=== PATIENT | female | born 1960 | race Caucasian/White ===

== ENCOUNTER 2018-01-30 03:20 | Inpatient (IN) | payer OTHER ==
[2018-01-30] MEDS: SOD CHLORIDE 0.9% 1,000 ML IV ×3 (03:26→11:51)
[2018-01-30] MEDS: MIDAZOLAM (DRIP) 50 mg/50 mL 50 ML IV ×2 (03:26→15:22)
[2018-01-30] MEDS: ROCURONIUM 50 MG INJ IV (03:29)
[2018-01-30] MEDS: FENTAnyl (DRIP) 1000 mcg/100mL 100 ML IV ×2 (03:30→15:24)
[2018-01-30 03:47] LABS: ADD MAN DIFF? NO
[2018-01-30 03:54] LABS: ALANINE AMINOTRANSFERASE 37 IU/L (13-69); ALBUMIN 3.6 g/dl (3.3-4.9); ALBUMIN/GLOBULIN RATIO 0.83; ALKALINE PHOSPHATASE 154 IU/L (42-121); ANION GAP 21 (8-16); ASPARTATE AMINO TRANSFERASE 91 IU/L (15-46); BILIRUBIN,INDIRECT 1.2 mg/dl (0-1.1); BILIRUBIN,TOTAL 1.2 mg/dl (0.2-1.3); BLOOD UREA NITROGEN 17 mg/dl (7-20); CALCIUM 8.6 mg/dl (8.4-10.2); CARBON DIOXIDE 24 mmol/L (21-31); CHLORIDE 105 mmol/L (97-110); CREATININE 1.18 mg/dl (0.44-1.00); GLUCOSE 99 mg/dl (70-220); LIPASE 190 U/L (23-300); POTASSIUM 3.6 mmol/L (3.5-5.1); SODIUM 146 mmol/L (135-144); TOTAL PROTEIN 7.9 g/dl (6.1-8.1)
[2018-01-30 04:02] LABS: BASOPHILS % 0.4 % (0.0-2.0); EOSINOPHILS # 0.1 10^3/ul (0.0-0.5); EOSINOPHILS % 1.4 % (0.0-7.0); HEMATOCRIT 46.5 % (37.0-47.0); HEMOGLOBIN 14.6 g/dl (12.0-16.0); LYMPHOCYTES # 2.5 10^3/ul (0.8-2.9); LYMPHOCYTES % 35.4 % (15.0-51.0); MEAN CORPUSCULAR HEMOGLOBIN 32.8 pg (29.0-33.0); MEAN CORPUSCULAR HGB CONC 31.4 g/dl (32.0-37.0); MEAN CORPUSCULAR VOLUME 104.5 fl (82.0-101.0); MEAN PLATELET VOLUME 12.3 fl (7.4-10.4); MONOCYTE # 0.4 10^3/ul (0.3-0.9); MONOCYTES % 5.1 % (0.0-11.0); NEUTROPHILS % 57.1 % (39.0-77.0); PLATELET COUNT 121 10^3/UL (140-415); RED BLOOD COUNT 4.45 10^6/ul (4.20-5.40); RED CELL DISTRIBUTION WIDTH 15.5 % (11.5-14.5)
[2018-01-30 04:06] LABS: B-TYPE NATRIURETIC PEPTIDE 318 PG/ML (0-125); TROPONIN-I 0.027 ng/ml (0.000-0.120)
[2018-01-30 04:09] LABS: INR 1.14; PROTIME 14.8 Sec (11.9-14.9); PT RATIO 1.2
[2018-01-30 04:10] LABS: PARTIAL THROMBOPLASTIN TIME 34.8 Sec (25.0-35.0)
[2018-01-30 04:51] LABS: AADO2 Arterial 600.9 mmHg (7.0-24.0); Allen Test ACCEPTAB; Arterial Base Excess -6.4 mmol/L (-3.0-3); Arterial Blood Gas Oxygen Sat 81.5 mmHG (95.0-98.0); Arterial COHb 0.8 % (0.0-3.0); Arterial Fraction of Oxyhgb 80.6 % (93.0-99.0); Arterial HCO3 22.2 mmol/L (22.0-26.0); Arterial MetHb 0.3 % (0.0-1.5); Arterial Total Hemglobin 16.4 g/dl (12.0-18.0); Arterial pCO2 55.7 mmhg (35-45); MODE VENT - AC; Site Left Radial
[2018-01-30] MEDS: CEFEPIME 2GM/50 ML (PMX) 50 ML IVPB (04:52)
[2018-01-30] MEDS: VANCOMYCIN 1 GM (PMX) 250 ML IVPB (04:53)
[2018-01-30] MEDS: ACETAMINOPHEN 650 MG SUPP PR (04:53)
[2018-01-30] MEDS: SODIUM CHLORIDE 0.9% 1L BAG IV* (05:10)
[2018-01-30] MEDS: ASPIRIN 300 MG SUPP PR (05:18)
[2018-01-30 05:24] LABS: LACTIC ACID 13.1 mmol/L (0.5-2.0)
[2018-01-30] MEDS ORDERED: DOCUSATE SODIUM 100 MG CAP PO (05:30)
[2018-01-30] MEDS ORDERED: morphine 2 MG INJ IV (05:30)
[2018-01-30] MEDS ORDERED: ONDANSETRON 4 MG INJ IV (05:30)
[2018-01-30] MEDS ORDERED: NITROGLYCERIN 50 MG/D5W (PMX) 250 ML IV (05:30)
[2018-01-30] MEDS ORDERED: NACL 0.9% 3 ML SYG IV (05:30)
[2018-01-30] MEDS ORDERED: HEPARIN 5,000 UNIT/0.5 ML VIAL SC (06:00)
[2018-01-30] MEDS ORDERED: ETOMIDATE 20 MG INJ (07:00)
[2018-01-30] MEDS ORDERED: ROCURONIUM 50 MG INJ (07:00)
[2018-01-30 07:10] LABS: LACTIC ACID 5.6 mmol/L (0.5-2.0)
[2018-01-30] MEDS ORDERED: DEXTROSE 50% 50 ML SYRINGE (07:11)
[2018-01-30 07:22] LABS: ADD UMIC YES; UR AMORPHOUS CRYSTAL FEW /HPF (NONE SEEN); UR ASCORBIC ACID 20 mg/dL (NEGATIVE); UR BACTERIA FEW /HPF (NONE SEEN); UR BILIRUBIN (Dip) NEGATIVE (NEGATIVE); UR BLOOD (Dip) 2+ mg/dL (NEGATIVE); UR CLARITY SLIGHTLY CLOUDY (CLEAR); UR COLOR YELLOW (YELLOW); UR GLUCOSE (Dip) NEGATIVE (NEGATIVE); UR KETONES (Dip) NEGATIVE (NEGATIVE); UR LEUKOCYTE ESTERASE (Dip) NEGATIVE Leu/ul (NEGATIVE); UR NITRITE (Dip) NEGATIVE (NEGATIVE); UR RBC 94 /HPF (0-5); UR SPECIFIC GRAVITY (Dip) 1.015 (1.003-1.030); UR TOTAL PROTEIN (Dip) 3+ mg/dl (NEGATIVE); UR UROBILINOGEN (Dip) 2+ mg/dL (NEGATIVE); UR WBC 12 /HPF (0-5)
[2018-01-30] MEDS ORDERED: VANCOMYCIN IV PER PHARMACY XX (08:30)
[2018-01-30] MEDS ORDERED: LACTATED RINGER'S 1,000 ML IV (08:30)
[2018-01-30] MEDS: IPRATROPIUM (NEB) 0.5 MG/2.5 ML AMP NEB ×4 (09:00→21:35)
[2018-01-30] MEDS ORDERED: DOPamine-D5W 1.6 MG/ML 250 ML (09:21)
[2018-01-30] MEDS: DOPamine-D5W 1.6 MG/ML 250 ML IV (09:26)
[2018-01-30 09:37] LABS: LACTIC ACID 5.1 mmol/L (0.5-2.0)
[2018-01-30] MEDS ORDERED: GLUCOSE GEL 15 GRAM TUBE PO ×2 (10:00)
[2018-01-30] MEDS ORDERED: GLUCAGON 1 MG INJ IM (10:00)
[2018-01-30] MEDS ORDERED: GLUCOSE GEL 15 GRAM TUBE BUCCAL (10:00)
[2018-01-30] MEDS: LIDOCAINE 1% (MPF) 5 ML VIAL SC (10:35)
[2018-01-30 11:05] LABS: D-DIMER 9401.21 ng/ml (<460)
[2018-01-30 11:09] LABS: CK INDEX 0.5; CREATINE KINASE 1907 IU/L (23-200)
[2018-01-30] MEDS: NORepinephrine 8MG/250 ML (PMX 250 ML IV (11:21)
[2018-01-30] MEDS: METHYLPREDNISOLONE 40 MG INJ IV ×3 (11:50→18:16)
[2018-01-30] MEDS: VANCOMYCIN 750 MG in SOD CHLORIDE 0.9% 150 ML IVPB ×2 (11:50→22:41)
[2018-01-30] MEDS: FAMOTIDINE 20 MG INJ IV ×2 (11:50→20:39)
[2018-01-30] MEDS: DEXTROSE 50% 50 ML SYRINGE IV (12:47)
[2018-01-30] MEDS: DEXTROSE 5%-0.45% NACL 1,000 ML IV ×2 (13:11→20:39)
[2018-01-30 14:53] LABS: AMPHETAMINE/METHAMPHETAMINE Negative (NEGATIVE); BENZODIAZEPINES Negative (NEGATIVE); CANNABINOIDS Negative (NEGATIVE); COCAINE Negative (NEGATIVE); OPIATES Negative (NEGATIVE)
[2018-01-30 15:55] LABS: BARBITURATES Negative (NEGATIVE)
[2018-01-30 16:00] LABS: LACTIC ACID 5.9 mmol/L (0.5-2.0)
[2018-01-30] MEDS ORDERED: CEFEPIME 2GM/50 ML (PMX) 50 ML IVPB (16:00)
[2018-01-30 16:30] LABS: CK INDEX 0.2
[2018-01-31] MEDS: METHYLPREDNISOLONE 40 MG INJ IV ×4 (00:18→17:33)
[2018-01-31] MEDS: ACCU-CHEK XX ×6 (01:08→21:28)
[2018-01-31] MEDS: IPRATROPIUM (NEB) 0.5 MG/2.5 ML AMP NEB ×2 (01:25→05:25)
[2018-01-31] MEDS: DEXTROSE 5%-0.45% NACL 1,000 ML IV ×3 (05:00→19:55)
[2018-01-31 05:02] LABS: WHITE BLOOD COUNT 7.7 10^3/ul (4.8-10.8)
[2018-01-31 05:02] LABS: ABNORMAL IP MESSAGE 1; HEMATOCRIT 37.3 % (37.0-47.0); HEMOGLOBIN 11.9 g/dl (12.0-16.0); MEAN CORPUSCULAR HEMOGLOBIN 31.4 pg (29.0-33.0); MEAN CORPUSCULAR HGB CONC 31.9 g/dl (32.0-37.0); MEAN CORPUSCULAR VOLUME 98.4 fl (82.0-101.0); MEAN PLATELET VOLUME 12.7 fl (7.4-10.4); PLATELET COUNT 89 10^3/UL (140-415); RED BLOOD COUNT 3.79 10^6/ul (4.20-5.40); RED CELL DISTRIBUTION WIDTH 15.6 % (11.5-14.5)
[2018-01-31 05:14] LABS: ADD MAN DIFF? YES; POSITIVE DIFF @See below
[2018-01-31 05:16] LABS: HEMOGLOBIN A1C 5.7 % (0-5.9)
[2018-01-31] MEDS: HEPARIN 5,000 UNIT/0.5 ML VIAL SC ×3 (05:53→22:20)
[2018-01-31] MEDS ORDERED: IPRATROPIUM (HFA) 12.9 GM INHALER INH ×2 (06:00→09:00)
[2018-01-31 06:13] LABS: LACTIC ACID 3.1 mmol/L (0.5-2.0)
[2018-01-31] MEDS: CEFEPIME 2GM/50 ML IVPB (06:16)
[2018-01-31] MEDS ORDERED: MAGNESIUM SULFATE 1 GM/100 ML D5W IVPB (07:00)
[2018-01-31] MEDS ORDERED: AMIODARONE 150 MG INJ (07:00)
[2018-01-31 07:10] LABS: ALANINE AMINOTRANSFERASE 68 IU/L (13-69); ALBUMIN/GLOBULIN RATIO 0.64; ALKALINE PHOSPHATASE 82 IU/L (42-121); ANION GAP 8 (8-16); ASPARTATE AMINO TRANSFERASE 350 IU/L (15-46); BILIRUBIN,INDIRECT 2.4 mg/dl (0-1.1); BILIRUBIN,TOTAL 3.4 mg/dl (0.2-1.3); BLOOD UREA NITROGEN 30 mg/dl (7-20); CALCIUM 7.4 mg/dl (8.4-10.2); CARBON DIOXIDE 28 mmol/L (21-31); CHLORIDE 108 mmol/L (97-110); CHOL/HDL RATIO 2.7 RATIO; CHOLESTEROL 101 mg/dl (100-200); CREATININE 1.03 mg/dl (0.44-1.00); GLUCOSE 111 mg/dl (70-220); HDL CHOLESTEROL 37 mg/dl (35-98); LDL CHOLESTEROL,CALCULATED 49 mg/dl; MAGNESIUM 1.9 mg/dl (1.7-2.5); POTASSIUM 3.8 mmol/L (3.5-5.1); SODIUM 140 mmol/L (135-144); TOTAL PROTEIN 5.1 g/dl (6.1-8.1); TRIGLYCERIDES 74 mg/dl (0-149)
[2018-01-31 07:16] LABS: AADO2 Arterial 394.1 mmHg (7.0-24.0); Allen Test ACCEPTAB; Arterial Base Excess 1.8 mmol/L (-3.0-3); Arterial Blood Gas Oxygen Sat 93.9 mmHG (95.0-98.0); Arterial COHb 0.6 % (0.0-3.0); Arterial Fraction of Oxyhgb 93.1 % (93.0-99.0); Arterial HCO3 25.4 mmol/L (22.0-26.0); Arterial MetHb 0.2 % (0.0-1.5); Arterial Total Hemglobin 13.2 g/dl (12.0-18.0); Arterial pCO2 36.5 mmhg (35-45); MODE VENT - AC; Site Right Radial
[2018-01-31 07:40] LABS: THYROID STIMULATING HORMONE 0.474 MIU/L (0.465-4.680)
[2018-01-31] MEDS: ASPIRIN 300 MG SUPP PR (09:12)
[2018-01-31] MEDS: FAMOTIDINE 20 MG INJ IV ×2 (09:12→21:28)
[2018-01-31] MEDS: IPRATROPIUM (NEB) 0.5 MG/2.5 ML AMP HHN ×4 (09:49→21:17)
[2018-01-31] MEDS: VANCOMYCIN 750 MG in SOD CHLORIDE 0.9% 150 ML IVPB ×2 (11:17→23:15)
[2018-01-31 12:05] LABS: ANISOCYTOSIS 3+ (0-0); BAND NEUTROPHILS #M 3.8 10^3/ul (0.0-0.6); BAND NEUTROPHILS % (M) 50 % (0-4); BASOPHILS % (M) 1 % (0-2); LYMPHOCYTES #M 0.4 10^3/ul (0.8-2.9); LYMPHOCYTES % (M) 6 % (15-51); METAMYELOCYTES %M 1 % (0-0); MONOCYTES % (M) 1 % (0-11); MYELOCYTES % (M) 1 % (0-0); PLATELET ESTIMATE DECREASED; POIKILOCYTOSIS 3+ (0-0); POLYCHROMASIA 3+ (0-0); PROMYELOCYTES % (M) 1 % (0-0); REACTIVE LYMPHOCYTES% (M) 1 % (0-0); SEG NEUT #M 3.4 10^3/ul (1.6-7.5); SEGMENTED NEUTROPHILS (M) % 41 % (39-77); SMUDGE%M 4 % (0-0)
[2018-01-31] MEDS: MIDAZOLAM (DRIP) 50 mg/50 mL 50 ML IV (23:15)
[2018-01-31 23:42] LABS: VANCOMYCIN,TROUGH 11.3 ug/ml (10.0-20.0)
[2018-02-01] MEDS: METHYLPREDNISOLONE 40 MG INJ IV ×4 (00:36→18:14)
[2018-02-01] MEDS: ACCU-CHEK XX ×6 (00:43→20:46)
[2018-02-01] MEDS: IPRATROPIUM (NEB) 0.5 MG/2.5 ML AMP HHN ×6 (01:58→21:58)
[2018-02-01] MEDS: FENTAnyl (DRIP) 1000 mcg/100mL 100 ML IV (03:00)
[2018-02-01] MEDS: CEFEPIME 2GM/50 ML IVPB (05:09)
[2018-02-01 05:23] LABS: ABNORMAL IP MESSAGE 1; HEMATOCRIT 36.1 % (37.0-47.0); HEMOGLOBIN 11.6 g/dl (12.0-16.0); MEAN CORPUSCULAR HGB CONC 32.1 g/dl (32.0-37.0); MEAN CORPUSCULAR VOLUME 99.4 fl (82.0-101.0); MEAN PLATELET VOLUME 12.9 fl (7.4-10.4); PLATELET COUNT 86 10^3/UL (140-415); RED BLOOD COUNT 3.63 10^6/ul (4.20-5.40); RED CELL DISTRIBUTION WIDTH 15.6 % (11.5-14.5)
[2018-02-01 05:23] LABS: WHITE BLOOD COUNT 7.9 10^3/ul (4.8-10.8)
[2018-02-01 05:27] LABS: POSITIVE DIFF @See below
[2018-02-01 05:28] LABS: ADD MAN DIFF? YES
[2018-02-01 05:53] LABS: MAGNESIUM 2.2 mg/dl (1.7-2.5)
[2018-02-01 05:58] LABS: B-TYPE NATRIURETIC PEPTIDE 980 PG/ML (0-125)
[2018-02-01] MEDS: DEXTROSE 5%-0.45% NACL 1,000 ML IV ×2 (06:20→18:14)
[2018-02-01] MEDS: HEPARIN 5,000 UNIT/0.5 ML VIAL SC ×3 (06:23→22:00)
[2018-02-01 06:38] LABS: ALANINE AMINOTRANSFERASE 81 IU/L (13-69); ALBUMIN 1.9 g/dl (3.3-4.9); ALBUMIN/GLOBULIN RATIO 0.59; ALKALINE PHOSPHATASE 81 IU/L (42-121); ANION GAP 9 (8-16); ASPARTATE AMINO TRANSFERASE 353 IU/L (15-46); BILIRUBIN,INDIRECT 2.1 mg/dl (0-1.1); BILIRUBIN,TOTAL 4.2 mg/dl (0.2-1.3); BLOOD UREA NITROGEN 32 mg/dl (7-20); CALCIUM 7.4 mg/dl (8.4-10.2); CARBON DIOXIDE 26 mmol/L (21-31); CHLORIDE 106 mmol/L (97-110); CREATININE 0.96 mg/dl (0.44-1.00); GLUCOSE 125 mg/dl (70-220); POTASSIUM 3.9 mmol/L (3.5-5.1); SODIUM 137 mmol/L (135-144); TOTAL PROTEIN 5.1 g/dl (6.1-8.1)
[2018-02-01 07:50] LABS: ANISOCYTOSIS 2+ (0-0); BAND NEUTROPHILS #M 1.6 10^3/ul (0.0-0.6); BAND NEUTROPHILS % (M) 21 % (0-4); BURR CELLS 1+ (0-0); GIANT THROMBO% (M) 1 % (0-0); LYMPHOCYTES #M 0.7 10^3/ul (0.8-2.9); LYMPHOCYTES % (M) 10 % (15-51); MONOCYTE #M 0.3 10^3/ul (0.3-0.9); MONOCYTES % (M) 5 % (0-11); PLATELET ESTIMATE DECREASED; POIKILOCYTOSIS 1+ (0-0); POLYCHROMASIA 3+ (0-0); SEG NEUT #M 5.2 10^3/ul (1.6-7.5); SEGMENTED NEUTROPHILS (M) % 64 % (39-77); SMUDGE%M 5 % (0-0)
[2018-02-01] MEDS ORDERED: PENDING SANTYL ORDER FOR WOUND CARE XX (08:00)
[2018-02-01 08:54] LABS: AADO2 Arterial 323.3 mmHg (7.0-24.0); Allen Test ACCEPTAB; Arterial Base Excess 0.2 mmol/L (-3.0-3); Arterial Blood Gas Oxygen Sat 91.8 mmHG (95.0-98.0); Arterial COHb 0.5 % (0.0-3.0); Arterial Fraction of Oxyhgb 91.2 % (93.0-99.0); Arterial HCO3 24.2 mmol/L (22.0-26.0); Arterial MetHb 0.2 % (0.0-1.5); Arterial Total Hemglobin 13.1 g/dl (12.0-18.0); Arterial pCO2 37.2 mmhg (35-45); MODE VENT - AC; Site Right Radial
[2018-02-01] MEDS: ASPIRIN 300 MG SUPP PR (09:00)
[2018-02-01] MEDS: FAMOTIDINE 20 MG INJ IV ×2 (09:51→20:42)
[2018-02-01] MEDS: VANCOMYCIN 750 MG in SOD CHLORIDE 0.9% 150 ML IVPB ×2 (11:18→23:27)
[2018-02-01] MEDS: METHADONE 10 MG TAB PO (11:29)
[2018-02-02] MEDS: DEXTROSE 5%-0.45% NACL 1,000 ML IV ×3 (00:01→21:27)
[2018-02-02] MEDS: METHYLPREDNISOLONE 40 MG INJ IV ×5 (00:13→23:42)
[2018-02-02] MEDS: ACCU-CHEK XX ×6 (01:32→21:00)
[2018-02-02] MEDS: IPRATROPIUM (NEB) 0.5 MG/2.5 ML AMP HHN ×6 (01:43→21:30)
[2018-02-02] MEDS: CEFEPIME 2GM/50 ML IVPB (05:02)
[2018-02-02 05:25] LABS: ADD MAN DIFF? NO
[2018-02-02 05:36] LABS: WHITE BLOOD COUNT 6.6 10^3/ul (4.8-10.8)
[2018-02-02 05:36] LABS: ABNORMAL IP MESSAGE 1; BASOPHILS % 0.2 % (0.0-2.0); HEMATOCRIT 34.4 % (37.0-47.0); HEMOGLOBIN 11.5 g/dl (12.0-16.0); LYMPHOCYTES # 0.5 10^3/ul (0.8-2.9); LYMPHOCYTES % 7.6 % (15.0-51.0); MEAN CORPUSCULAR HGB CONC 33.4 g/dl (32.0-37.0); MEAN CORPUSCULAR VOLUME 98.9 fl (82.0-101.0); MEAN PLATELET VOLUME 13.1 fl (7.4-10.4); MONOCYTE # 0.5 10^3/ul (0.3-0.9); MONOCYTES % 7.1 % (0.0-11.0); NEUTROPHIL # 5.6 10^3/ul (1.6-7.5); NEUTROPHILS % 84.6 % (39.0-77.0); PLATELET COUNT 86 10^3/UL (140-415); RED BLOOD COUNT 3.48 10^6/ul (4.20-5.40); RED CELL DISTRIBUTION WIDTH 15.8 % (11.5-14.5)
[2018-02-02] MEDS: MIDAZOLAM (DRIP) 50 mg/50 mL 50 ML IV (05:59)
[2018-02-02] MEDS: HEPARIN 5,000 UNIT/0.5 ML VIAL SC (06:00)
[2018-02-02] MEDS: FENTAnyl (DRIP) 1000 mcg/100mL 100 ML IV (06:03)
[2018-02-02 06:07] LABS: ANION GAP 4 (8-16); BLOOD UREA NITROGEN 30 mg/dl (7-20); CALCIUM 7.5 mg/dl (8.4-10.2); CARBON DIOXIDE 29 mmol/L (21-31); CHLORIDE 107 mmol/L (97-110); CREATININE 0.83 mg/dl (0.44-1.00); GLUCOSE 121 mg/dl (70-220); POSITIVE DIFF @See below; POTASSIUM 3.8 mmol/L (3.5-5.1); SODIUM 136 mmol/L (135-144)
[2018-02-02 07:41] LABS: ALANINE AMINOTRANSFERASE 85 IU/L (13-69); ALBUMIN 1.9 g/dl (3.3-4.9); ALKALINE PHOSPHATASE 89 IU/L (42-121); ASPARTATE AMINO TRANSFERASE 237 IU/L (15-46); BILIRUBIN,INDIRECT 1.9 mg/dl (0-1.1); BILIRUBIN,TOTAL 3.6 mg/dl (0.2-1.3); TOTAL PROTEIN 4.8 g/dl (6.1-8.1)
[2018-02-02] MEDS: FAMOTIDINE 20 MG INJ IV ×2 (09:02→21:26)
[2018-02-02] MEDS: ASPIRIN 300 MG SUPP PR (09:03)
[2018-02-02] MEDS: METHADONE 10 MG TAB PO (09:28)
[2018-02-02 09:40] LABS: AADO2 Arterial 319.7 mmHg (7.0-24.0); Allen Test ACCEPTAB; Arterial Base Excess 1.9 mmol/L (-3.0-3); Arterial Blood Gas Oxygen Sat 93.2 mmHG (95.0-98.0); Arterial COHb 0.2 % (0.0-3.0); Arterial Fraction of Oxyhgb 92.9 % (93.0-99.0); Arterial HCO3 25.7 mmol/L (22.0-26.0); Arterial MetHb 0.1 % (0.0-1.5); Arterial pCO2 37.8 mmhg (35-45); MODE VENT - AC; Site Right Radial
[2018-02-02] MEDS: VANCOMYCIN 750 MG in SOD CHLORIDE 0.9% 150 ML IVPB ×2 (11:25→23:42)
[2018-02-03] MEDS: ACCU-CHEK XX ×6 (01:00→21:48)
[2018-02-03] MEDS: IPRATROPIUM (NEB) 0.5 MG/2.5 ML AMP HHN ×7 (01:40→20:08)
[2018-02-03] MEDS: DEXTROSE 5%-0.45% NACL 1,000 ML IV ×3 (06:01→21:11)
[2018-02-03] MEDS: CEFEPIME 2GM/50 ML IVPB ×2 (06:37→17:34)
[2018-02-03] MEDS: MIDAZOLAM (DRIP) 50 mg/50 mL 50 ML IV (06:38)
[2018-02-03] MEDS: METHYLPREDNISOLONE 40 MG INJ IV ×3 (06:39→21:48)
[2018-02-03] MEDS: FENTAnyl (DRIP) 1000 mcg/100mL 100 ML IV (06:39)
[2018-02-03 07:19] LABS: AADO2 Arterial 310.2 mmHg (7.0-24.0); Allen Test ACCEPTAB; Arterial Base Excess 0.8 mmol/L (-3.0-3); Arterial Blood Gas Oxygen Sat 95.5 mmHG (95.0-98.0); Arterial COHb 0.5 % (0.0-3.0); Arterial Fraction of Oxyhgb 94.8 % (93.0-99.0); Arterial HCO3 24.5 mmol/L (22.0-26.0); Arterial MetHb 0.2 % (0.0-1.5); Arterial Total Hemglobin 13.5 g/dl (12.0-18.0); Arterial pCO2 36.2 mmhg (35-45); MODE VENT - AC; Site Right Radial
[2018-02-03 07:53] LABS: ADD MAN DIFF? NO
[2018-02-03 07:55] LABS: WHITE BLOOD COUNT 6.8 10^3/ul (4.8-10.8)
[2018-02-03 07:55] LABS: ABNORMAL IP MESSAGE 1; BASOPHILS % 0.1 % (0.0-2.0); HEMATOCRIT 34.9 % (37.0-47.0); HEMOGLOBIN 11.4 g/dl (12.0-16.0); LYMPHOCYTES # 0.5 10^3/ul (0.8-2.9); MEAN CORPUSCULAR HEMOGLOBIN 31.8 pg (29.0-33.0); MEAN CORPUSCULAR HGB CONC 32.7 g/dl (32.0-37.0); MEAN CORPUSCULAR VOLUME 97.5 fl (82.0-101.0); MEAN PLATELET VOLUME 12.4 fl (7.4-10.4); MONOCYTE # 0.7 10^3/ul (0.3-0.9); MONOCYTES % 10.1 % (0.0-11.0); NEUTROPHIL # 5.6 10^3/ul (1.6-7.5); NEUTROPHILS % 82.2 % (39.0-77.0); PLATELET COUNT 83 10^3/UL (140-415); RED BLOOD COUNT 3.58 10^6/ul (4.20-5.40); RED CELL DISTRIBUTION WIDTH 15.9 % (11.5-14.5)
[2018-02-03 08:01] LABS: POSITIVE DIFF @See below
[2018-02-03 08:26] LABS: ANION GAP 5 (8-16); BLOOD UREA NITROGEN 32 mg/dl (7-20); CALCIUM 7.1 mg/dl (8.4-10.2); CARBON DIOXIDE 26 mmol/L (21-31); CHLORIDE 107 mmol/L (97-110); CREATININE 0.78 mg/dl (0.44-1.00); GLUCOSE 243 mg/dl (70-220); SODIUM 134 mmol/L (135-144)
[2018-02-03] MEDS: ASPIRIN 300 MG SUPP PR (09:12)
[2018-02-03] MEDS: METHADONE 10 MG TAB PO (09:12)
[2018-02-03] MEDS: FAMOTIDINE 20 MG INJ IV ×2 (09:12→21:48)
[2018-02-03] MEDS: FUROSEMIDE 20 MG INJ IV ×2 (09:44→17:35)
[2018-02-03] MEDS: VANCOMYCIN 750 MG in SOD CHLORIDE 0.9% 150 ML IVPB ×2 (11:27→23:57)
[2018-02-03 22:58] LABS: VANCOMYCIN,TROUGH 13.8 ug/ml (10.0-20.0)
[2018-02-04] MEDS: ACCU-CHEK XX ×6 (01:00→21:38)
[2018-02-04] MEDS: IPRATROPIUM (NEB) 0.5 MG/2.5 ML AMP HHN ×6 (01:30→20:00)
[2018-02-04 05:04] LABS: WHITE BLOOD COUNT 8.5 10^3/ul (4.8-10.8)
[2018-02-04 05:04] LABS: ABNORMAL IP MESSAGE 1; ADD MAN DIFF? NO; BASOPHILS % 0.1 % (0.0-2.0); HEMATOCRIT 37.2 % (37.0-47.0); HEMOGLOBIN 12.7 g/dl (12.0-16.0); LYMPHOCYTES # 0.4 10^3/ul (0.8-2.9); LYMPHOCYTES % 4.8 % (15.0-51.0); MEAN CORPUSCULAR HEMOGLOBIN 33.6 pg (29.0-33.0); MEAN CORPUSCULAR HGB CONC 34.1 g/dl (32.0-37.0); MEAN CORPUSCULAR VOLUME 98.4 fl (82.0-101.0); MEAN PLATELET VOLUME 13.3 fl (7.4-10.4); MONOCYTE # 0.8 10^3/ul (0.3-0.9); MONOCYTES % 9.5 % (0.0-11.0); NEUTROPHIL # 7.2 10^3/ul (1.6-7.5); NEUTROPHILS % 84.8 % (39.0-77.0); PLATELET COUNT 87 10^3/UL (140-415); RED BLOOD COUNT 3.78 10^6/ul (4.20-5.40)
[2018-02-04] MEDS: METHYLPREDNISOLONE 40 MG INJ IV ×3 (05:24→21:38)
[2018-02-04] MEDS: CEFEPIME 2GM/50 ML IVPB ×2 (05:24→17:35)
[2018-02-04] MEDS: FUROSEMIDE 20 MG INJ IV ×2 (05:24→17:57)
[2018-02-04 05:37] LABS: POSITIVE DIFF @See below
[2018-02-04 06:03] LABS: B-TYPE NATRIURETIC PEPTIDE 2190 PG/ML (0-125)
[2018-02-04 06:04] LABS: ALANINE AMINOTRANSFERASE 86 IU/L (13-69); ALBUMIN 2.2 g/dl (3.3-4.9); ALBUMIN/GLOBULIN RATIO 0.59; ALKALINE PHOSPHATASE 117 IU/L (42-121); ANION GAP 8 (8-16); ASPARTATE AMINO TRANSFERASE 136 IU/L (15-46); BILIRUBIN,INDIRECT 1.5 mg/dl (0-1.1); BILIRUBIN,TOTAL 2.5 mg/dl (0.2-1.3); BLOOD UREA NITROGEN 33 mg/dl (7-20); CALCIUM 7.6 mg/dl (8.4-10.2); CARBON DIOXIDE 27 mmol/L (21-31); CHLORIDE 108 mmol/L (97-110); CREATININE 0.83 mg/dl (0.44-1.00); GLUCOSE 115 mg/dl (70-220); SODIUM 139 mmol/L (135-144); TOTAL PROTEIN 5.9 g/dl (6.1-8.1)
[2018-02-04 06:07] LABS: MAGNESIUM 2.3 mg/dl (1.7-2.5)
[2018-02-04 06:07] LABS: PHOSPHORUS 2.8 mg/dl (2.5-4.9)
[2018-02-04 07:14] LABS: AADO2 Arterial 323.8 mmHg (7.0-24.0); Allen Test ACCEPTAB; Arterial Base Excess 0.2 mmol/L (-3.0-3); Arterial Blood Gas Oxygen Sat 92.9 mmHG (95.0-98.0); Arterial COHb 0.2 % (0.0-3.0); Arterial Fraction of Oxyhgb 92.5 % (93.0-99.0); Arterial HCO3 23.6 mmol/L (22.0-26.0); Arterial MetHb 0.2 % (0.0-1.5); Arterial pCO2 34.5 mmhg (35-45); MODE VENT - AC; Site Right Radial
[2018-02-04] MEDS: FENTAnyl (DRIP) 1000 mcg/100mL 100 ML IV (08:12)
[2018-02-04] MEDS: MIDAZOLAM (DRIP) 50 mg/50 mL 50 ML IV (08:13)
[2018-02-04] MEDS ORDERED: ASPIRIN (EC) 81 MG TAB PO (09:00)
[2018-02-04] MEDS: ASPIRIN 81 MG TAB NGT (09:38)
[2018-02-04] MEDS: SPIRONOLACTONE 25 MG TAB PO (09:38)
[2018-02-04] MEDS: FAMOTIDINE 20 MG INJ IV ×2 (09:38→21:38)
[2018-02-04] MEDS: METHADONE 10 MG TAB PO (09:39)
[2018-02-04] MEDS: VANCOMYCIN 750 MG in SOD CHLORIDE 0.9% 150 ML IVPB ×2 (11:34→23:00)
[2018-02-04 12:33] LABS: AMMONIA 34 umol/l (9-30)
[2018-02-05] MEDS: ACCU-CHEK XX ×6 (00:50→21:19)
[2018-02-05] MEDS: IPRATROPIUM (NEB) 0.5 MG/2.5 ML AMP HHN ×6 (00:55→19:51)
[2018-02-05] MEDS: LORAZEPAM 2 MG INJ IV ×2 (02:49→16:23)
[2018-02-05 05:28] LABS: ADD MAN DIFF? NO
[2018-02-05] MEDS: FUROSEMIDE 20 MG INJ IV ×2 (05:34→09:59)
[2018-02-05] MEDS: METHYLPREDNISOLONE 40 MG INJ IV ×3 (05:34→21:19)
[2018-02-05] MEDS: CEFEPIME 2GM/50 ML IVPB ×2 (05:34→17:54)
[2018-02-05 05:38] LABS: WHITE BLOOD COUNT 6.1 10^3/ul (4.8-10.8)
[2018-02-05 05:38] LABS: ABNORMAL IP MESSAGE 1; BASOPHILS % 0.2 % (0.0-2.0); HEMOGLOBIN 11.7 g/dl (12.0-16.0); LYMPHOCYTES # 0.3 10^3/ul (0.8-2.9); LYMPHOCYTES % 4.7 % (15.0-51.0); MEAN CORPUSCULAR HEMOGLOBIN 33.4 pg (29.0-33.0); MEAN CORPUSCULAR HGB CONC 33.4 g/dl (32.0-37.0); MEAN PLATELET VOLUME 12.6 fl (7.4-10.4); MONOCYTE # 0.5 10^3/ul (0.3-0.9); MONOCYTES % 8.3 % (0.0-11.0); NEUTROPHIL # 5.2 10^3/ul (1.6-7.5); NEUTROPHILS % 84.8 % (39.0-77.0); PLATELET COUNT 88 10^3/UL (140-415); RED CELL DISTRIBUTION WIDTH 16.5 % (11.5-14.5)
[2018-02-05 05:54] LABS: PROTIME 15.4 Sec (11.9-14.9); PT RATIO 1.2
[2018-02-05 06:04] LABS: POSITIVE DIFF @See below
[2018-02-05 06:16] LABS: ALANINE AMINOTRANSFERASE 82 IU/L (13-69); ALKALINE PHOSPHATASE 120 IU/L (42-121); ANION GAP 6 (8-16); ASPARTATE AMINO TRANSFERASE 116 IU/L (15-46); BILIRUBIN,INDIRECT 1.4 mg/dl (0-1.1); BILIRUBIN,TOTAL 1.9 mg/dl (0.2-1.3); BLOOD UREA NITROGEN 37 mg/dl (7-20); CALCIUM 7.5 mg/dl (8.4-10.2); CARBON DIOXIDE 29 mmol/L (21-31); CHLORIDE 108 mmol/L (97-110); GLUCOSE 114 mg/dl (70-220); MAGNESIUM 2.1 mg/dl (1.7-2.5); POTASSIUM 4.3 mmol/L (3.5-5.1); SODIUM 139 mmol/L (135-144); TOTAL PROTEIN 5.3 g/dl (6.1-8.1)
[2018-02-05 07:06] LABS: Allen Test ACCEPTAB; Arterial Base Excess 2.8 mmol/L (-3.0-3); Arterial Blood Gas Oxygen Sat 94.1 mmHG (95.0-98.0); Arterial COHb 0.2 % (0.0-3.0); Arterial Fraction of Oxyhgb 93.7 % (93.0-99.0); Arterial HCO3 26.3 mmol/L (22.0-26.0); Arterial MetHb 0.2 % (0.0-1.5); Arterial Total Hemglobin 13.1 g/dl (12.0-18.0); MODE VENT - AC; Site Right Radial
[2018-02-05] MEDS: FAMOTIDINE 20 MG INJ IV ×2 (09:47→21:19)
[2018-02-05] MEDS: SPIRONOLACTONE 25 MG TAB PO (09:57)
[2018-02-05] MEDS: ASPIRIN 81 MG TAB NGT (09:57)
[2018-02-05] MEDS: METHADONE 10 MG TAB PO (09:58)
[2018-02-05] MEDS: VANCOMYCIN 750 MG in SOD CHLORIDE 0.9% 150 ML IVPB ×2 (11:57→22:58)
[2018-02-05] MEDS: FENTAnyl (DRIP) 1000 mcg/100mL 100 ML IV (16:30)
[2018-02-05] MEDS ORDERED: FUROSEMIDE 40 MG TAB PO (18:00)
[2018-02-05] MEDS: FUROSEMIDE 40 MG INJ IV (19:00)
[2018-02-06] MEDS: ACCU-CHEK XX ×6 (00:51→21:23)
[2018-02-06] MEDS: IPRATROPIUM (NEB) 0.5 MG/2.5 ML AMP HHN ×6 (01:27→21:06)
[2018-02-06] MEDS: CEFEPIME 2GM/50 ML IVPB ×2 (05:00→17:30)
[2018-02-06] MEDS: METHYLPREDNISOLONE 40 MG INJ IV ×3 (06:11→21:53)
[2018-02-06] MEDS: FUROSEMIDE 40 MG INJ IV ×2 (06:11→18:59)
[2018-02-06] MEDS: FENTAnyl (DRIP) 1000 mcg/100mL 100 ML IV ×2 (06:30→20:57)
[2018-02-06 06:59] LABS: ADD MAN DIFF? NO
[2018-02-06 07:03] LABS: ABNORMAL IP MESSAGE 1; BASOPHILS % 0.2 % (0.0-2.0); HEMATOCRIT 35.8 % (37.0-47.0); LYMPHOCYTES # 0.3 10^3/ul (0.8-2.9); LYMPHOCYTES % 5.5 % (15.0-51.0); MEAN CORPUSCULAR HEMOGLOBIN 33.9 pg (29.0-33.0); MEAN CORPUSCULAR HGB CONC 33.5 g/dl (32.0-37.0); MEAN CORPUSCULAR VOLUME 101.1 fl (82.0-101.0); MEAN PLATELET VOLUME 13.3 fl (7.4-10.4); MONOCYTE # 0.5 10^3/ul (0.3-0.9); MONOCYTES % 7.5 % (0.0-11.0); NEUTROPHIL # 5.2 10^3/ul (1.6-7.5); PLATELET COUNT 90 10^3/UL (140-415); RED BLOOD COUNT 3.54 10^6/ul (4.20-5.40); RED CELL DISTRIBUTION WIDTH 16.2 % (11.5-14.5)
[2018-02-06 07:07] LABS: POSITIVE DIFF @See below
[2018-02-06 07:36] LABS: ALANINE AMINOTRANSFERASE 85 IU/L (13-69); ALKALINE PHOSPHATASE 116 IU/L (42-121); ANION GAP 8 (8-16); ASPARTATE AMINO TRANSFERASE 109 IU/L (15-46); BILIRUBIN,INDIRECT 1.1 mg/dl (0-1.1); BILIRUBIN,TOTAL 1.3 mg/dl (0.2-1.3); BLOOD UREA NITROGEN 45 mg/dl (7-20); CALCIUM 7.5 mg/dl (8.4-10.2); CARBON DIOXIDE 28 mmol/L (21-31); CHLORIDE 109 mmol/L (97-110); CREATININE 0.82 mg/dl (0.44-1.00); GLUCOSE 120 mg/dl (70-220); POTASSIUM 4.2 mmol/L (3.5-5.1); SODIUM 141 mmol/L (135-144); TOTAL PROTEIN 5.3 g/dl (6.1-8.1)
[2018-02-06 07:45] LABS: B-TYPE NATRIURETIC PEPTIDE 2010 PG/ML (0-125)
[2018-02-06 08:15] LABS: PHOSPHORUS 3.2 mg/dl (2.5-4.9)
[2018-02-06] MEDS: VANCOMYCIN 750 MG in SOD CHLORIDE 0.9% 150 ML IVPB ×2 (10:58→23:04)
[2018-02-06] MEDS: ASPIRIN 81 MG TAB NGT (10:58)
[2018-02-06] MEDS: SPIRONOLACTONE 25 MG TAB PO (10:58)
[2018-02-06] MEDS: FAMOTIDINE 20 MG INJ IV ×2 (11:04→20:58)
[2018-02-06] MEDS: METHADONE 10 MG TAB PO (11:04)
[2018-02-06] MEDS: MIDAZOLAM (DRIP) 50 mg/50 mL 50 ML IV (15:29)
[2018-02-07] MEDS: ACCU-CHEK XX ×6 (01:06→21:02)
[2018-02-07] MEDS: IPRATROPIUM (NEB) 0.5 MG/2.5 ML AMP HHN ×6 (01:30→20:01)
[2018-02-07] MEDS: MIDAZOLAM (DRIP) 50 mg/50 mL 50 ML IV ×2 (03:07→17:19)
[2018-02-07 05:02] LABS: ADD MAN DIFF? NO
[2018-02-07 05:08] LABS: ABNORMAL IP MESSAGE 1; BASOPHILS % 0.2 % (0.0-2.0); HEMATOCRIT 37.4 % (37.0-47.0); HEMOGLOBIN 12.2 g/dl (12.0-16.0); LYMPHOCYTES # 0.3 10^3/ul (0.8-2.9); LYMPHOCYTES % 4.6 % (15.0-51.0); MEAN CORPUSCULAR HEMOGLOBIN 32.1 pg (29.0-33.0); MEAN CORPUSCULAR HGB CONC 32.6 g/dl (32.0-37.0); MEAN CORPUSCULAR VOLUME 98.4 fl (82.0-101.0); MONOCYTE # 0.4 10^3/ul (0.3-0.9); MONOCYTES % 5.4 % (0.0-11.0); NEUTROPHIL # 5.8 10^3/ul (1.6-7.5); NEUTROPHILS % 89.2 % (39.0-77.0); PLATELET COUNT 84 10^3/UL (140-415); RED CELL DISTRIBUTION WIDTH 16.3 % (11.5-14.5)
[2018-02-07 05:08] LABS: WHITE BLOOD COUNT 6.5 10^3/ul (4.8-10.8)
[2018-02-07] MEDS: CEFEPIME 2GM/50 ML IVPB ×2 (05:08→16:36)
[2018-02-07 05:16] LABS: POSITIVE DIFF @See below
[2018-02-07 05:29] LABS: ALANINE AMINOTRANSFERASE 93 IU/L (13-69); ALBUMIN 2.1 g/dl (3.3-4.9); ALBUMIN/GLOBULIN RATIO 0.65; ALKALINE PHOSPHATASE 129 IU/L (42-121); ANION GAP 5 (8-16); ASPARTATE AMINO TRANSFERASE 112 IU/L (15-46); BILIRUBIN,INDIRECT 1.4 mg/dl (0-1.1); BILIRUBIN,TOTAL 1.5 mg/dl (0.2-1.3); BLOOD UREA NITROGEN 44 mg/dl (7-20); CALCIUM 7.7 mg/dl (8.4-10.2); CARBON DIOXIDE 32 mmol/L (21-31); CHLORIDE 109 mmol/L (97-110); CREATININE 0.77 mg/dl (0.44-1.00); GLUCOSE 126 mg/dl (70-220); SODIUM 142 mmol/L (135-144); TOTAL PROTEIN 5.3 g/dl (6.1-8.1)
[2018-02-07 05:35] LABS: B-TYPE NATRIURETIC PEPTIDE 1750 PG/ML (0-125)
[2018-02-07] MEDS: FUROSEMIDE 40 MG INJ IV ×2 (06:10→17:56)
[2018-02-07] MEDS: METHYLPREDNISOLONE 40 MG INJ IV ×3 (06:10→21:43)
[2018-02-07 07:54] LABS: AADO2 Arterial 403.4 mmHg (7.0-24.0); Allen Test ACCEPTAB; Arterial Base Excess 6.1 mmol/L (-3.0-3); Arterial Blood Gas Oxygen Sat 89.2 mmHG (95.0-98.0); Arterial COHb 0.1 % (0.0-3.0); Arterial Fraction of Oxyhgb 88.8 % (93.0-99.0); Arterial HCO3 29.4 mmol/L (22.0-26.0); Arterial MetHb 0.3 % (0.0-1.5); Arterial Total Hemglobin 13.9 g/dl (12.0-18.0); Arterial pCO2 37.9 mmhg (35-45); MODE VENT - AC; Site Right Radial
[2018-02-07] MEDS: ASPIRIN 81 MG TAB NGT (08:53)
[2018-02-07] MEDS: BISACODYL (EC) 5 MG TAB PO (08:54)
[2018-02-07] MEDS: FAMOTIDINE 20 MG INJ IV ×2 (08:54→20:51)
[2018-02-07] MEDS: METHADONE 10 MG TAB PO (08:54)
[2018-02-07] MEDS: SPIRONOLACTONE 25 MG TAB PO (08:54)
[2018-02-07] MEDS: MAGNESIUM SULFATE 2 GM/50 ML 50 ML IVPB (09:06)
[2018-02-07 10:28] LABS: HAAIG REFLEX REFLEX FILED
[2018-02-07 11:00] LABS: VANCOMYCIN,TROUGH 12.3 ug/ml (10.0-20.0)
[2018-02-07] MEDS: VANCOMYCIN 750 MG in SOD CHLORIDE 0.9% 150 ML IVPB ×2 (11:41→22:41)
[2018-02-07 12:01] LABS: HEPATITIS B SURFACE ANTIGEN NEGATIVE (NEGATIVE)
[2018-02-07 12:19] LABS: HEPATITIS B CORE ANTIBODY NEGATIVE (NEGATIVE); HEPATITIS C VIRAL ANTIBODY REACTIVE (NEGATIVE); HIV 1&2 ANTIBODY NEGATIVE (NEGATIVE)
[2018-02-07] MEDS: MAGNESIUM HYDROXIDE 30ML CUP PO (13:27)
[2018-02-07] MEDS: NA PHOSPHATE/BIPHOS 133 ML ENEMA PR (16:36)
[2018-02-07] MEDS: DOCUSATE SODIUM 10 MG/ML (10ML CUP) NGT (16:38)
[2018-02-07] MEDS: FENTAnyl (DRIP) 1000 mcg/100mL 100 ML IV (17:33)
[2018-02-08] MEDS: IPRATROPIUM (NEB) 0.5 MG/2.5 ML AMP HHN ×2 (01:09→05:00)
[2018-02-08] MEDS: ACCU-CHEK XX ×6 (01:27→21:26)
[2018-02-08] MEDS: CEFEPIME 2GM/50 ML IVPB ×2 (05:00→17:00)
[2018-02-08 05:42] LABS: ADD MAN DIFF? NO
[2018-02-08 05:48] LABS: WHITE BLOOD COUNT 8.2 10^3/ul (4.8-10.8)
[2018-02-08 05:48] LABS: ABNORMAL IP MESSAGE 1; HEMATOCRIT 35.9 % (37.0-47.0); HEMOGLOBIN 11.7 g/dl (12.0-16.0); LYMPHOCYTES # 0.3 10^3/ul (0.8-2.9); MEAN CORPUSCULAR HEMOGLOBIN 32.8 pg (29.0-33.0); MEAN CORPUSCULAR HGB CONC 32.6 g/dl (32.0-37.0); MEAN CORPUSCULAR VOLUME 100.6 fl (82.0-101.0); MEAN PLATELET VOLUME 13.2 fl (7.4-10.4); MONOCYTE # 0.6 10^3/ul (0.3-0.9); MONOCYTES % 7.4 % (0.0-11.0); NEUTROPHIL # 7.3 10^3/ul (1.6-7.5); NEUTROPHILS % 88.1 % (39.0-77.0); PLATELET COUNT 87 10^3/UL (140-415); RED BLOOD COUNT 3.57 10^6/ul (4.20-5.40); RED CELL DISTRIBUTION WIDTH 16.6 % (11.5-14.5)
[2018-02-08 05:58] LABS: POSITIVE DIFF @See below
[2018-02-08] MEDS: METHYLPREDNISOLONE 40 MG INJ IV ×3 (06:03→22:05)
[2018-02-08] MEDS: FUROSEMIDE 40 MG INJ IV ×2 (06:03→17:00)
[2018-02-08 06:22] LABS: ALANINE AMINOTRANSFERASE 92 IU/L (13-69); ALBUMIN 1.9 g/dl (3.3-4.9); ALBUMIN/GLOBULIN RATIO 0.57; ALKALINE PHOSPHATASE 113 IU/L (42-121); ANION GAP 5 (8-16); ASPARTATE AMINO TRANSFERASE 100 IU/L (15-46); BILIRUBIN,INDIRECT 1.3 mg/dl (0-1.1); BILIRUBIN,TOTAL 1.3 mg/dl (0.2-1.3); BLOOD UREA NITROGEN 50 mg/dl (7-20); CALCIUM 7.7 mg/dl (8.4-10.2); CARBON DIOXIDE 32 mmol/L (21-31); CHLORIDE 109 mmol/L (97-110); CREATININE 0.83 mg/dl (0.44-1.00); GLUCOSE 125 mg/dl (70-220); MAGNESIUM 2.5 mg/dl (1.7-2.5); POTASSIUM 4.2 mmol/L (3.5-5.1); SODIUM 142 mmol/L (135-144); TOTAL PROTEIN 5.2 g/dl (6.1-8.1)
[2018-02-08 06:25] LABS: B-TYPE NATRIURETIC PEPTIDE 1210 PG/ML (0-125)
[2018-02-08] MEDS: LEVALBUTEROL (HFA) 15 GM INHALER INH ×3 (08:00→19:38)
[2018-02-08] MEDS: MIDAZOLAM (DRIP) 50 mg/50 mL 50 ML IV ×2 (08:33→21:03)
[2018-02-08] MEDS: FAMOTIDINE 20 MG INJ IV ×2 (08:34→21:01)
[2018-02-08] MEDS: ASPIRIN 81 MG TAB NGT (08:34)
[2018-02-08] MEDS: SPIRONOLACTONE 25 MG TAB PO (08:34)
[2018-02-08] MEDS: METHADONE 10 MG TAB PO (08:39)
[2018-02-08] MEDS: LACTULOSE 30ML CUP PO ×3 (10:28→23:02)
[2018-02-08] MEDS: VANCOMYCIN 750 MG in SOD CHLORIDE 0.9% 150 ML IVPB ×2 (10:29→23:02)
[2018-02-08 11:04] LABS: AADO2 Arterial 611.2 mmHg (7.0-24.0); Allen Test ACCEPTAB; Arterial Blood Gas Oxygen Sat 90.5 mmHG (95.0-98.0); Arterial COHb 0.3 % (0.0-3.0); Arterial MetHb 0.3 % (0.0-1.5); Arterial Total Hemglobin 13.2 g/dl (12.0-18.0); Arterial pCO2 40.9 mmhg (35-45); MODE VENT - AC; Site Right Radial
[2018-02-08] MEDS: BISACODYL (EC) 5 MG TAB PO (12:22)
[2018-02-08] MEDS: DOCUSATE SODIUM 10 MG/ML (10ML CUP) NGT (12:22)
[2018-02-08] MEDS: FENTAnyl (DRIP) 1000 mcg/100mL 100 ML IV (15:16)
[2018-02-08] MEDS: MAGNESIUM HYDROXIDE 30ML CUP PO (21:03)
[2018-02-09] MEDS: LEVALBUTEROL (HFA) 15 GM INHALER INH ×4 (01:10→19:31)
[2018-02-09] MEDS: ACCU-CHEK XX ×6 (01:19→21:00)
[2018-02-09] MEDS: ACETAMINOPHEN 325 MG TAB PO (01:45)
[2018-02-09] MEDS: DOCUSATE SODIUM 10 MG/ML (10ML CUP) NGT (02:34)
[2018-02-09] MEDS: CEFEPIME 2GM/50 ML IVPB ×2 (04:51→16:44)
[2018-02-09 05:31] LABS: ADD MAN DIFF? NO
[2018-02-09 05:36] LABS: WHITE BLOOD COUNT 13.5 10^3/ul (4.8-10.8)
[2018-02-09 05:36] LABS: ABNORMAL IP MESSAGE 1; BASOPHILS % 0.1 % (0.0-2.0); HEMATOCRIT 37.9 % (37.0-47.0); HEMOGLOBIN 12.4 g/dl (12.0-16.0); LYMPHOCYTES # 0.4 10^3/ul (0.8-2.9); MEAN CORPUSCULAR HEMOGLOBIN 33.2 pg (29.0-33.0); MEAN CORPUSCULAR HGB CONC 32.7 g/dl (32.0-37.0); MEAN CORPUSCULAR VOLUME 101.3 fl (82.0-101.0); MEAN PLATELET VOLUME 13.7 fl (7.4-10.4); MONOCYTES % 7.6 % (0.0-11.0); NEUTROPHIL # 11.9 10^3/ul (1.6-7.5); NEUTROPHILS % 88.2 % (39.0-77.0); PLATELET COUNT 94 10^3/UL (140-415); RED BLOOD COUNT 3.74 10^6/ul (4.20-5.40); RED CELL DISTRIBUTION WIDTH 18.2 % (11.5-14.5)
[2018-02-09 05:48] LABS: POSITIVE DIFF @See below
[2018-02-09 05:59] LABS: MAGNESIUM 2.7 mg/dl (1.7-2.5)
[2018-02-09 05:59] LABS: PHOSPHORUS 3.5 mg/dl (2.5-4.9)
[2018-02-09 06:01] LABS: BLOOD UREA NITROGEN 57 mg/dl (7-20); CALCIUM 7.8 mg/dl (8.4-10.2); CHLORIDE 109 mmol/L (97-110); CREATININE 1.01 mg/dl (0.44-1.00); GLUCOSE 115 mg/dl (70-220); POTASSIUM 4.7 mmol/L (3.5-5.1); SODIUM 143 mmol/L (135-144)
[2018-02-09 06:06] LABS: ANION GAP 9 (8-16); CARBON DIOXIDE 30 mmol/L (21-31)
[2018-02-09] MEDS: FUROSEMIDE 40 MG INJ IV ×2 (06:18→18:12)
[2018-02-09] MEDS: METHYLPREDNISOLONE 40 MG INJ IV ×3 (06:18→22:53)
[2018-02-09] MEDS: ASPIRIN 81 MG TAB NGT (08:47)
[2018-02-09] MEDS: FAMOTIDINE 20 MG INJ IV ×2 (08:47→22:53)
[2018-02-09] MEDS: SPIRONOLACTONE 25 MG TAB PO (08:48)
[2018-02-09] MEDS: METHADONE 10 MG TAB PO (08:49)
[2018-02-09] MEDS: LACTULOSE 30ML CUP PO ×2 (08:51→18:48)
[2018-02-09] MEDS ORDERED: HEPARIN 1000 UNITS/ML 10 ML INJ IV ×2 (09:30)
[2018-02-09] MEDS: FENTAnyl (DRIP) 1000 mcg/100mL 100 ML IV (10:33)
[2018-02-09] MEDS: VANCOMYCIN 750 MG in SOD CHLORIDE 0.9% 150 ML IVPB (10:34)
[2018-02-09 11:07] LABS: LACTIC ACID 3.6 mmol/L (0.5-2.0)
[2018-02-09 11:10] LABS: PARTIAL THROMBOPLASTIN TIME 28.4 Sec (25.0-35.0)
[2018-02-09] MEDS: MIDAZOLAM (DRIP) 50 mg/50 mL 50 ML IV ×2 (11:29→22:52)
[2018-02-09] MEDS: HEPARIN 1000 UNITS/ML 10 ML INJ IV (12:35)
[2018-02-09] MEDS: HEPARIN 25000 UNITS/250 ML 250 ML IV (12:41)
[2018-02-09 13:51] LABS: LACTIC ACID 2.9 mmol/L (0.5-2.0)
[2018-02-09 20:56] LABS: PARTIAL THROMBOPLASTIN TIME > 180.0 Sec (25.0-35.0)
[2018-02-09 23:43] LABS: PARTIAL THROMBOPLASTIN TIME > 180.0 Sec (25.0-35.0)
[2018-02-10] MEDS: VANCOMYCIN 750 MG in SOD CHLORIDE 0.9% 150 ML IVPB ×3 (00:27→22:50)
[2018-02-10] MEDS: ACCU-CHEK XX ×6 (01:00→21:09)
[2018-02-10] MEDS: LEVALBUTEROL (HFA) 15 GM INHALER INH ×4 (01:06→20:46)
[2018-02-10] MEDS: FENTAnyl (DRIP) 1000 mcg/100mL 100 ML IV ×2 (01:31→22:42)
[2018-02-10 03:51] LABS: ANION GAP 10 (8-16); BLOOD UREA NITROGEN 65 mg/dl (7-20); CALCIUM 7.6 mg/dl (8.4-10.2); CARBON DIOXIDE 29 mmol/L (21-31); CHLORIDE 111 mmol/L (97-110); CREATININE 1.17 mg/dl (0.44-1.00); GLUCOSE 157 mg/dl (70-220); POTASSIUM 5.1 mmol/L (3.5-5.1); SODIUM 145 mmol/L (135-144)
[2018-02-10 03:52] LABS: PHOSPHORUS 3.4 mg/dl (2.5-4.9)
[2018-02-10 03:52] LABS: MAGNESIUM 2.6 mg/dl (1.7-2.5)
[2018-02-10 03:57] LABS: PARTIAL THROMBOPLASTIN TIME 80.9 Sec (25.0-35.0)
[2018-02-10 04:08] LABS: AADO2 Arterial 636.8 mmHg (7.0-24.0); Allen Test ACCEPTAB; Arterial Base Excess 4.7 mmol/L (-3.0-3); Arterial Blood Gas Oxygen Sat 80.9 mmHG (95.0-98.0); Arterial COHb 0.3 % (0.0-3.0); Arterial Fraction of Oxyhgb 80.4 % (93.0-99.0); Arterial HCO3 26.9 mmol/L (22.0-26.0); Arterial MetHb 0.3 % (0.0-1.5); Arterial Total Hemglobin 14.1 g/dl (12.0-18.0); Arterial pCO2 32.4 mmhg (35-45); MODE VENT - AC; Site Right Radial
[2018-02-10 04:19] LABS: ABNORMAL IP MESSAGE 1; HEMATOCRIT 36.2 % (37.0-47.0); HEMOGLOBIN 12.1 g/dl (12.0-16.0); MEAN CORPUSCULAR HEMOGLOBIN 34.2 pg (29.0-33.0); MEAN CORPUSCULAR HGB CONC 33.4 g/dl (32.0-37.0); MEAN CORPUSCULAR VOLUME 102.3 fl (82.0-101.0); MEAN PLATELET VOLUME 13.8 fl (7.4-10.4); NUCLEATED RED BLOOD CELLS% 0.1 /100WBC (0.0-0.0); PLATELET COUNT 105 10^3/UL (140-415); RED BLOOD COUNT 3.54 10^6/ul (4.20-5.40); RED CELL DISTRIBUTION WIDTH 17.7 % (11.5-14.5)
[2018-02-10 04:19] LABS: WHITE BLOOD COUNT 27.4 10^3/ul (4.8-10.8)
[2018-02-10 04:26] LABS: POSITIVE DIFF @See below
[2018-02-10 04:38] LABS: ADD MAN DIFF? YES
[2018-02-10] MEDS: FUROSEMIDE 40 MG INJ IV ×2 (05:27→18:00)
[2018-02-10] MEDS: METHYLPREDNISOLONE 40 MG INJ IV ×3 (05:27→22:50)
[2018-02-10] MEDS: CEFEPIME 2GM/50 ML IVPB ×2 (05:27→17:15)
[2018-02-10] MEDS: MIDAZOLAM (DRIP) 50 mg/50 mL 50 ML IV ×2 (05:28→21:01)
[2018-02-10 06:53] LABS: ANISOCYTOSIS 1+ (0-0); LYMPHOCYTES % (M) 4 % (15-51); MONOCYTE #M 2.7 10^3/ul (0.3-0.9); MONOCYTES % (M) 10 % (0-11); MYELOCYTES #M 0.2 10^3/ul (0.0-0.0); MYELOCYTES % (M) 1 % (0-0); PLATELET ESTIMATE DECREASED; POIKILOCYTOSIS 1+ (0-0); SEGMENTED NEUTROPHILS (M) % 85 % (39-77)
[2018-02-10] MEDS: FAMOTIDINE 20 MG INJ IV ×2 (08:47→21:05)
[2018-02-10] MEDS: METHADONE 10 MG TAB PO (09:00)
[2018-02-10] MEDS: ASPIRIN 81 MG TAB NGT (09:00)
[2018-02-10] MEDS: SPIRONOLACTONE 25 MG TAB PO (09:00)
[2018-02-10 14:34] LABS: WHITE BLOOD COUNT 34.2 10^3/ul (4.8-10.8)
[2018-02-10 14:34] LABS: ABNORMAL IP MESSAGE 1; HEMATOCRIT 40.7 % (37.0-47.0); HEMOGLOBIN 12.8 g/dl (12.0-16.0); MEAN CORPUSCULAR HEMOGLOBIN 31.9 pg (29.0-33.0); MEAN CORPUSCULAR HGB CONC 31.4 g/dl (32.0-37.0); MEAN CORPUSCULAR VOLUME 101.5 fl (82.0-101.0); NUCLEATED RED BLOOD CELLS% 0.5 /100WBC (0.0-0.0); PLATELET COUNT 118 10^3/UL (140-415); RED BLOOD COUNT 4.01 10^6/ul (4.20-5.40); RED CELL DISTRIBUTION WIDTH 17.8 % (11.5-14.5)
[2018-02-10 14:36] LABS: ADD MAN DIFF? YES; POSITIVE DIFF @See below
[2018-02-10] MEDS: PANTOPRAZOLE IV 80 MG in SOD CHLORIDE 0.9% 100 ML IVPB (15:25)
[2018-02-10] MEDS: PANTOPRAZOLE IV 80 MG in SOD CHLORIDE 0.9% 100 ML IV (15:41)
[2018-02-10 16:16] LABS: ANISOCYTOSIS 1+ (0-0); BURR CELLS 1+ (0-0); ERYTHROBLAST% (NRBC) (M) 3 % (0-0); LYMPHOCYTES #M 0.3 10^3/ul (0.8-2.9); LYMPHOCYTES % (M) 1 % (15-51); MONOCYTES % (M) 9 % (0-11); OVALOCYTES 1+ (0-0); PLATELET ESTIMATE NORMAL; POIKILOCYTOSIS 1+ (0-0); SEGMENTED NEUTROPHILS (M) % 90 % (39-77); SMUDGE%M 7 % (0-0)
[2018-02-10] MEDS ORDERED: PANTOPRAZOLE 40 MG INJ IV (18:00)
[2018-02-10 22:45] LABS: WHITE BLOOD COUNT 38.5 10^3/ul (4.8-10.8)
[2018-02-10 22:45] LABS: ABNORMAL IP MESSAGE 1; HEMATOCRIT 39.5 % (37.0-47.0); HEMOGLOBIN 12.4 g/dl (12.0-16.0); MEAN CORPUSCULAR HEMOGLOBIN 32.7 pg (29.0-33.0); MEAN CORPUSCULAR HGB CONC 31.4 g/dl (32.0-37.0); MEAN CORPUSCULAR VOLUME 104.2 fl (82.0-101.0); PLATELET COUNT 115 10^3/UL (140-415); RED BLOOD COUNT 3.79 10^6/ul (4.20-5.40); RED CELL DISTRIBUTION WIDTH 17.6 % (11.5-14.5)
[2018-02-10 22:48] LABS: ADD MAN DIFF? YES; POSITIVE DIFF @See below
[2018-02-10 23:25] LABS: ANION GAP 17 (8-16); BLOOD UREA NITROGEN 75 mg/dl (7-20); CALCIUM 7.3 mg/dl (8.4-10.2); CARBON DIOXIDE 23 mmol/L (21-31); CHLORIDE 109 mmol/L (97-110); CREATININE 2.21 mg/dl (0.44-1.00); GLUCOSE 58 mg/dl (70-220); SODIUM 143 mmol/L (135-144)
[2018-02-10 23:28] LABS: VANCOMYCIN,TROUGH 19.9 ug/ml (10.0-20.0)
[2018-02-10 23:36] LABS: POTASSIUM 6.1 mmol/L (3.5-5.1)
[2018-02-10 23:37] LABS: LACTIC ACID 11.2 mmol/L (0.5-2.0)
[2018-02-10 23:43] LABS: ANISOCYTOSIS 1+ (0-0); GIANT THROMBO% (M) 1 % (0-0); MONOCYTE #M 1.9 10^3/ul (0.3-0.9); MONOCYTES % (M) 5 % (0-11); PLATELET ESTIMATE DECREASED; POIKILOCYTOSIS 2+ (0-0); REACTIVE LYMPHOCYTES #M 0.3 10^3/ul (0.0-0.0); REACTIVE LYMPHOCYTES% (M) 1 % (0-0); SEGMENTED NEUTROPHILS (M) % 94 % (39-77); SMUDGE%M 19 % (0-0)
[2018-02-11] MEDS: SOD CHLORIDE 0.9% 1,000 ML IV ×4 (00:17→08:00)
[2018-02-11] MEDS: ACCU-CHEK XX ×6 (01:39→21:05)
[2018-02-11] MEDS: DEXTROSE 50% 50 ML SYRINGE IV ×2 (01:42→09:17)
[2018-02-11] MEDS: PANTOPRAZOLE IV 80 MG in SOD CHLORIDE 0.9% 100 ML IV ×3 (01:51→18:37)
[2018-02-11] MEDS: LEVALBUTEROL (HFA) 15 GM INHALER INH ×4 (02:15→20:47)
[2018-02-11] MEDS: CEFEPIME 2GM/50 ML IVPB (04:42)
[2018-02-11 05:29] LABS: ADD MAN DIFF? NO
[2018-02-11 05:34] LABS: ABNORMAL IP MESSAGE 1; BASOPHIL # 0.1 10^3/ul (0.0-0.1); BASOPHILS % 0.1 % (0.0-2.0); HEMOGLOBIN 10.9 g/dl (12.0-16.0); LYMPHOCYTES # 1.1 10^3/ul (0.8-2.9); LYMPHOCYTES % 3.1 % (15.0-51.0); MEAN CORPUSCULAR HEMOGLOBIN 36.7 pg (29.0-33.0); MEAN CORPUSCULAR VOLUME 111.1 fl (82.0-101.0); MONOCYTE # 3.6 10^3/ul (0.3-0.9); MONOCYTES % 9.8 % (0.0-11.0); NEUTROPHIL # 30.4 10^3/ul (1.6-7.5); NEUTROPHILS % 82.9 % (39.0-77.0); NUCLEATED RED BLOOD CELLS # 0.4 10^3/ul (0.0-0.0); PLATELET COUNT 86 10^3/UL (140-415); RED BLOOD COUNT 2.97 10^6/ul (4.20-5.40); RED CELL DISTRIBUTION WIDTH 21.6 % (11.5-14.5)
[2018-02-11 05:34] LABS: WHITE BLOOD COUNT 36.7 10^3/ul (4.8-10.8)
[2018-02-11 05:39] LABS: POSITIVE DIFF @See below
[2018-02-11] MEDS: FUROSEMIDE 40 MG INJ IV ×2 (06:00→17:49)
[2018-02-11] MEDS: MIDAZOLAM (DRIP) 50 mg/50 mL 50 ML IV ×3 (06:12→23:08)
[2018-02-11] MEDS: METHYLPREDNISOLONE 40 MG INJ IV ×2 (06:15→21:05)
[2018-02-11 06:45] LABS: ALBUMIN 1.9 g/dl (3.3-4.9); ALBUMIN/GLOBULIN RATIO 0.65; ALKALINE PHOSPHATASE 241 IU/L (42-121); ANION GAP 19 (8-16); BILIRUBIN,INDIRECT 5.9 mg/dl (0-1.1); BILIRUBIN,TOTAL 9.3 mg/dl (0.2-1.3); BLOOD UREA NITROGEN 71 mg/dl (7-20); CALCIUM 6.4 mg/dl (8.4-10.2); CARBON DIOXIDE 19 mmol/L (21-31); CHLORIDE 112 mmol/L (97-110); CREATININE 2.51 mg/dl (0.44-1.00); GLUCOSE 71 mg/dl (70-220); MAGNESIUM 2.9 mg/dl (1.7-2.5); POTASSIUM 5.9 mmol/L (3.5-5.1); SODIUM 144 mmol/L (135-144); TOTAL PROTEIN 4.8 g/dl (6.1-8.1)
[2018-02-11] MEDS: ASPIRIN 81 MG TAB NGT (08:00)
[2018-02-11] MEDS: METHADONE 10 MG TAB PO (09:00)
[2018-02-11] MEDS: SPIRONOLACTONE 25 MG TAB PO (09:00)
[2018-02-11] MEDS ORDERED: DEXTROSE 10% 1,000 ML (09:55)
[2018-02-11 10:11] LABS: AADO2 Arterial 606.3 mmHg (7.0-24.0); Allen Test ACCEPTAB; Arterial Base Excess -8.1 mmol/L (-3.0-3); Arterial Blood Gas Oxygen Sat 93.2 mmHG (95.0-98.0); Arterial COHb 0.3 % (0.0-3.0); Arterial Fraction of Oxyhgb 92.6 % (93.0-99.0); Arterial HCO3 15.9 mmol/L (22.0-26.0); Arterial MetHb 0.3 % (0.0-1.5); Arterial Total Hemglobin 11.7 g/dl (12.0-18.0); Arterial pCO2 28.4 mmhg (35-45); MODE VENT - AC; Site Right Radial
[2018-02-11 10:29] LABS: ASPARTATE AMINO TRANSFERASE > 7500 IU/L (15-46)
[2018-02-11 10:30] LABS: ALANINE AMINOTRANSFERASE > 9000 IU/L (13-69)
[2018-02-11] MEDS ORDERED: ACETAMINOPHEN 650 MG SUPP PR (11:30)
[2018-02-11 11:51] LABS: PARTIAL THROMBOPLASTIN TIME 59.8 Sec (25.0-35.0)
[2018-02-11 12:07] LABS: THROMBIN TIME 77.9 SEC (13.8-19.1)
[2018-02-11 12:12] LABS: FIBRIN SPLIT PRODUCT >160 ug/ml (<10)
[2018-02-11] MEDS: FENTAnyl (DRIP) 1000 mcg/100mL 100 ML IV (12:15)
[2018-02-11] MEDS: DEXTROSE 5%-0.45% NACL 1,000 ML IV ×2 (12:53→19:37)
[2018-02-11 12:56] LABS: PROTIME 63.6 Sec (11.9-14.9)
[2018-02-11 12:57] LABS: D-DIMER > 10000.00 ng/ml (<460)
[2018-02-11 13:00] LABS: INR 7.07
[2018-02-11 13:05] LABS: LACTIC ACID 13.1 mmol/L (0.5-2.0)
[2018-02-11] MEDS: OCTREOTIDE 50 MCG in SOD CHLORIDE 0.9% 50 ML IVPB (13:10)
[2018-02-11 13:32] LABS: PLATELET COUNT 78 10^3/UL (140-415)
[2018-02-11] MEDS: OCTREOTIDE 500 MCG in DEXTROSE 5% 49 ML IV (15:36)
[2018-02-11] MEDS: LORAZEPAM 2 MG INJ IV (21:30)
[2018-02-11 22:18] LABS: CREATININE,URINE RANDOM 74.68 mg/dl (20-320); PROTEIN/CREAT RATIO 1.37 RATIO
[2018-02-11 22:20] LABS: SODIUM,URINE RANDOM < 13 mmol/L (30-90)
[2018-02-12] MEDS: FENTAnyl (DRIP) 1000 mcg/100mL 100 ML IV ×2 (00:25→08:58)
[2018-02-12] MEDS: PHENYLephrine 80 MG in DEXTROSE 5% 492 ML IV (00:39)
[2018-02-12] MEDS: ACCU-CHEK XX ×2 (00:42→04:25)
[2018-02-12 01:05] LABS: ANTIBODY IDENTIFICATION 1 1
[2018-02-12] MEDS: LEVALBUTEROL (HFA) 15 GM INHALER INH ×2 (01:38→07:35)
[2018-02-12] MEDS: MIDAZOLAM (DRIP) 50 mg/50 mL 50 ML IV ×2 (02:40→09:33)
[2018-02-12 04:06] LABS: ABNORMAL IP MESSAGE 1; HEMOGLOBIN 8.2 g/dl (12.0-16.0); MEAN CORPUSCULAR HEMOGLOBIN 32.9 pg (29.0-33.0); MEAN CORPUSCULAR HGB CONC 29.3 g/dl (32.0-37.0); MEAN CORPUSCULAR VOLUME 112.4 fl (82.0-101.0); NUCLEATED RED BLOOD CELLS% 2.4 /100WBC (0.0-0.0); PLATELET COUNT 69 10^3/UL (140-415); RED BLOOD COUNT 2.49 10^6/ul (4.20-5.40); RED CELL DISTRIBUTION WIDTH 18.5 % (11.5-14.5)
[2018-02-12 04:06] LABS: WHITE BLOOD COUNT 27.4 10^3/ul (4.8-10.8)
[2018-02-12 04:09] LABS: POSITIVE DIFF @See below
[2018-02-12 04:10] LABS: ADD MAN DIFF? YES
[2018-02-12] MEDS: DEXTROSE 5%-0.45% NACL 1,000 ML IV (04:20)
[2018-02-12 04:22] LABS: INR 3.41; PROTIME 35.5 Sec (11.9-14.9); PT RATIO 2.8
[2018-02-12 04:23] LABS: OCCULT BLOOD STOOL POSITIVE (NEGATIVE)
[2018-02-12 04:23] LABS: PARTIAL THROMBOPLASTIN TIME 61.2 Sec (25.0-35.0)
[2018-02-12 04:25] LABS: ALBUMIN 2.1 g/dl (3.3-4.9); ALKALINE PHOSPHATASE 387 IU/L (42-121); ANION GAP 21 (8-16); BILIRUBIN,INDIRECT 8.1 mg/dl (0-1.1); BILIRUBIN,TOTAL 12.5 mg/dl (0.2-1.3); BLOOD UREA NITROGEN 63 mg/dl (7-20); CARBON DIOXIDE 16 mmol/L (21-31); CHLORIDE 106 mmol/L (97-110); CREATINE KINASE 1233 IU/L (23-200); GLUCOSE 236 mg/dl (70-220); SODIUM 136 mmol/L (135-144); TOTAL PROTEIN 4.7 g/dl (6.1-8.1)
[2018-02-12 04:25] LABS: URIC ACID 8.7 mg/dl (3.1-7.9)
[2018-02-12 04:28] LABS: VANCOMYCIN,RANDOM 18.8 ug/ml
[2018-02-12 04:34] LABS: INR 3.32; PT RATIO 2.7
[2018-02-12 04:35] LABS: PARTIAL THROMBOPLASTIN TIME 61.2 Sec (25.0-35.0)
[2018-02-12 04:40] LABS: CALCIUM 5.5 mg/dl (8.4-10.2); CREATININE 3.51 mg/dl (0.44-1.00); POTASSIUM 6.5 mmol/L (3.5-5.1)
[2018-02-12 05:15] LABS: ALANINE AMINOTRANSFERASE > 10000 IU/L (13-69); ASPARTATE AMINO TRANSFERASE > 7500 IU/L (15-46)
[2018-02-12] MEDS: PANTOPRAZOLE IV 80 MG in SOD CHLORIDE 0.9% 100 ML IV (05:27)
[2018-02-12] MEDS: FUROSEMIDE 20 MG INJ IV (05:27)
[2018-02-12] MEDS: OCTREOTIDE 500 MCG in DEXTROSE 5% 49 ML IV (05:27)
[2018-02-12 05:59] LABS: D-DIMER > 10000.00 ng/ml (<460); FIBRIN SPLIT PRODUCT >80 and <160 ug/ml (<10); PROTIME 34.7 Sec (11.9-14.9); THROMBIN TIME > 100.0 SEC (13.8-19.1)
[2018-02-12 05:59] LABS: PLATELET COUNT 69 10^3/UL (140-415)
[2018-02-12] MEDS: CALCIUM GLUCONATE 10% 1 GM in DEXTROSE 5% 100 ML IVPB (06:19)
[2018-02-12] MEDS: DEXTROSE 50% 50 ML SYRINGE IV (06:19)
[2018-02-12] MEDS: INSULIN REGULAR, HUMAN 100 UNIT/1 ML 3ML VIAL IVP (06:21)
[2018-02-12] MEDS: LORAZEPAM 2 MG INJ IV (06:55)
[2018-02-12 07:12] LABS: AADO2 Arterial 611.3 mmHg (7.0-24.0); Allen Test ACCEPTAB; Arterial Base Excess -11.5 mmol/L (-3.0-3); Arterial Blood Gas Oxygen Sat 86.8 mmHG (95.0-98.0); Arterial COHb 0.3 % (0.0-3.0); Arterial HCO3 14.9 mmol/L (22.0-26.0); Arterial MetHb 0.6 % (0.0-1.5); Arterial Total Hemglobin 9.1 g/dl (12.0-18.0); Arterial pCO2 35.2 mmhg (35-45); MODE VENT - AC; Site Right Radial
[2018-02-12 07:30] LABS: ANISOCYTOSIS 1+ (0-0); BAND NEUTROPHILS #M 3.8 10^3/ul (0.0-0.6); BAND NEUTROPHILS % (M) 14 % (0-4); BURR CELLS 1+ (0-0); ERYTHROBLAST% (NRBC) (M) 5 % (0-0); MONOCYTE #M 1.3 10^3/ul (0.3-0.9); MONOCYTES % (M) 5 % (0-11); PLASMA CELLS #M 0.2 10^3/ul (0.0-0.0); PLASMAC%(M) 1 % (0); PLATELET ESTIMATE INCREASED; POIKILOCYTOSIS 3+ (0-0); REACTIVE LYMPHOCYTES #M 0.2 10^3/ul (0.0-0.0); REACTIVE LYMPHOCYTES% (M) 1 % (0-0); SEG NEUT #M 22.7 10^3/ul (1.6-7.5); SEGMENTED NEUTROPHILS (M) % 79 % (39-77); SMUDGE%M 5 % (0-0)
[2018-02-12] MEDS: ASPIRIN 81 MG TAB NGT (08:07)
[2018-02-12] MEDS: METHADONE 10 MG TAB PO (08:08)
[2018-02-12] MEDS: VECURONIUM 100 MG in DEXTROSE 5% 100 ML IV (08:43)
[2018-02-12] MEDS ORDERED: CEFEPIME 2GM/50 ML IVPB (09:00)
[2018-02-12] MEDS ORDERED: SODIUM BICARBONATE (IV ADD) 100 MEQ in DEXTROSE 5% 1,000 ML IV (09:00)
[2018-02-12 09:27] LABS: ANION GAP 20 (8-16); BLOOD UREA NITROGEN 59 mg/dl (7-20); CARBON DIOXIDE 16 mmol/L (21-31); CHLORIDE 104 mmol/L (97-110); GLUCOSE 315 mg/dl (70-220); MAGNESIUM 2.6 mg/dl (1.7-2.5); SODIUM 134 mmol/L (135-144)
[2018-02-12 09:37] LABS: CREATININE 3.54 mg/dl (0.44-1.00)
[2018-02-12 09:39] LABS: CALCIUM 5.4 mg/dl (8.4-10.2); POTASSIUM 6.2 mmol/L (3.5-5.1)
[2018-02-12] MEDS ORDERED: LORAZEPAM (MDV) 100 MG in DEXTROSE 5% 50 ML IV (11:00)
[2018-02-12] MEDS ORDERED: morphine (DRIP) 100 MG/100 ML 100 ML IV (11:00)
== END 2018-02-12 13:09 | disposition expired | DRG 870 ==
LOC: ICU 06:20 → E/R 03:20 → ICU 04:56
PROC: 02HV33Z Insertion of Infusion Device into Superior Vena Cava, Percutaneous Approach (ICD-10-PCS; principal; 2018-01-30)
PROC: 5A1955Z Respiratory Ventilation, Greater than 96 Consecutive Hours (ICD-10-PCS; 2018-01-30)
PROC: 0BH17EZ Insertion of Endotracheal Airway into Trachea, Via Natural or Artificial Opening (ICD-10-PCS; 2018-01-30)
PROC: 30233K1 Transfusion of Nonautologous Frozen Plasma into Peripheral Vein, Percutaneous Approach (ICD-10-PCS; 2018-02-11)
DX: A41.9 Sepsis, unspecified organism (principal); R65.21 Severe sepsis with septic shock; J18.9 Pneumonia, unspecified organism; J96.01 Acute respiratory failure with hypoxia; G93.40 Encephalopathy, unspecified; K72.00 Acute and subacute hepatic failure without coma; I26.99 Other pulmonary embolism without acute cor pulmonale; D65 Disseminated intravascular coagulation [defibrination syndrome]; I21.4 Non-ST elevation (NSTEMI) myocardial infarction; N17.0 Acute kidney failure with tubular necrosis; E87.2 Acidosis; E46 Unspecified protein-calorie malnutrition; I47.2 Ventricular tachycardia; K92.2 Gastrointestinal hemorrhage, unspecified; F11.20 Opioid dependence, uncomplicated; D68.32 Hemorrhagic disorder due to extrinsic circulating anticoagulants; I50.30 Unspecified diastolic (congestive) heart failure; I46.2 Cardiac arrest due to underlying cardiac condition; I10 Essential (primary) hypertension; I25.10 Atherosclerotic heart disease of native coronary artery without angina pectoris; D69.6 Thrombocytopenia, unspecified; K74.60 Unspecified cirrhosis of liver; K59.00 Constipation, unspecified; T45.515A Adverse effect of anticoagulants, initial encounter; I11.0 Hypertensive heart disease with heart failure; Y92.230 Patient room in hospital as the place of occurrence of the external cause; E87.5 Hyperkalemia; J44.9 Chronic obstructive pulmonary disease, unspecified; F17.200 Nicotine dependence, unspecified, uncomplicated; E66.9 Obesity, unspecified; D64.9 Anemia, unspecified; Z86.74 Personal history of sudden cardiac arrest; Z68.34 Body mass index [BMI] 34.0-34.9, adult; Z95.5 Presence of coronary angioplasty implant and graft
CPT/HCPCS: 31500; 36415; 36430; 36569; 36600; 71045; 76705; 76775; 76937; 80048; 80053; 80061; 80076; 80202; 80307; 81001; 81003; 82140; 82270; 82550; 82553; 82570; 82803; 82962; 83036; 83605; 83690; 83735; 83880; 84100; 84300; 84443; 84484; 84560; 85025; 85049; 85362; 85378; 85384; 85610; 85670; 85730; 86703; 86704; 86709; 86803; 86850; 86870; 86900; 86901; 87040; 87070; 87075; 87081; 87086; 87340; 89190; 89220; 93005; 93306; 93970; 94002; 94003; 94640; 94770; 96374; 96375; 99291-25